=== PATIENT | female | born 1935 | race Caucasian/White ===

== ENCOUNTER 2017-08-28 21:13 | Inpatient (IN) | payer MEDICARE, OTHER ==
[~2017-08-28] VITALS: Ht 162.6 cm; Wt 72.6 kg
[~2017-08-28 21:13] MED LIST: ALEN70TA45 PO; AMIO200T2 PO; ASPI-1169 PO; BUPR100T13 PO; FURO20TA4 PO; LEVO75TA7 PO; METO25TA3 PO; PANT40TA4 PO; SENN-18 PO; SIMV20TA6 PO
--- NOTE | 2017-08-28 21:25 | NUR ---
PT BIB FAMILY SEEN IN WAITING ROOM WITH CHEST PAIN 8/10 RADIATING TO LEFT SHOULDER. PT LABORED BREATHING BUT ABLE TO SEPAK A/O X4. PLACED ON 02 IN BED. WILL CONTINUE TO MONITOR FOR CHANGES
[2017-08-28] MEDS ORDERED: DILTIAZEM HCL 25 MG IV IV ONE ×3 (21:30→22:30)
[2017-08-28] MEDS ORDERED: ASPIRIN 325 MG TABLET PO ONE (21:30)
--- NOTE | 2017-08-28 21:30 | NUR ---
EKG DONE AT BEDSIDE
[2017-08-28] MEDS ORDERED: DILTIAZEM HCL 50 MG IV ONE (21:37)
[2017-08-28] MEDS ORDERED: ASPIRIN 325 MG TABLET ONE (21:37)
--- NOTE | 2017-08-28 21:41 | NUR ---
CHETS XRAY AT BEDSIDE
[2017-08-28 21:42] LABS: BASOPHILS # (AUTO) 0.1 /CMM (0.0-0.2); BASOPHILS % (AUTO) 0.5 % (0.0-2.0); EOSINOPHILS # (AUTO) 0.2 /CMM (0.0-0.7); HEMATOCRIT 38 % (33-45); HEMOGLOBIN 13.1 g/dL (11.5-14.8); LYMPHOCYTES # (AUTO) 4.3 /CMM (0.8-4.8); LYMPHOCYTES % (AUTO) 42.6 % (20.0-44.0); MEAN CORPUSCULAR HEMOGLOBIN 30 PG (26.0-33.0); MEAN CORPUSCULAR HGB CONC 34 g/dl (31.0-36.0); MEAN CORPUSCULAR VOLUME 89 fL (82-100); MONOCYTES # (AUTO) 0.9 /CMM (0.1-1.30); MONOCYTES % (AUTO) 9.2 % (2.0-12.0); NEUTROPHILS # (AUTO) 4.6 /CMM (1.8-8.9); NEUTROPHILS % (AUTO) 45.7 % (43.0-81.0); PLATELET COUNT (AUTO) 225 /CMM (150-450); RDW COEFFICIENT OF VARIATION 13.5 (11.5-15.0); RED BLOOD CELL COUNT(AUTO) 4.29 MIL/uL (4.0-5.2)
[2017-08-28 22:02] LABS: INR 0.94 (0.87-1.13); PROTHROMBIN TIME 9.8 SECS (9.5-12.7)
[2017-08-28] MEDS ORDERED: DILTIAZEM HCL 25 MG IV ONE (22:31)
[2017-08-28 22:33] LABS: CALCIUM, SERUM 9.2 mg/dL (8.5-10.1); CARBON DIOXIDE 25 mmol/L (21-32); CHLORIDE 106 mmol/L (98-107); CREATININE 1.2 mg/dL (0.6-1.3); GLUCOSE 129 mg/dL (74-106); POTASSIUM 3.4 mmol/L (3.5-5.1); SODIUM SERUM 141 mmol/L (136-145); UREA NITROGEN, BLOOD 25 mg/dL (7-18)
[2017-08-28 22:41] LABS: TROPONIN I < 0.017 ng/mL (0.00-0.056)
[2017-08-28] MEDS ORDERED: AMIODARONE 150 MG in IV D5W 100 ML IV ONE (23:00)
[2017-08-28] MEDS ORDERED: AMIODARONE 900 MG in IV D5W 500 ML IV ONE (23:00)
[2017-08-28] MEDS ORDERED: AMIODARONE 150 MG/3 ML VIAL IV ONE ×2 (23:01→23:21)
--- NOTE | 2017-08-28 23:14 | NUR ---
[facility] PAGED
--- NOTE | 2017-08-29 00:09 | NUR ---
REPORT GIVEN TO CADE BERGMAN
[2017-08-29 00:20] VITALS: BP 130/94
--- NOTE | 2017-08-29 00:52 | NUR ---
0010 received patient from ER via gurney; accompanied by grand daughter. Patient currently on amiodarone drip at 1mg/hr; IV site RAC patent and intact. Alert and verbally responsive, ambulated to bed-2 after using the bathroom. Oriented to physical set up. Skin check done with Joey. Routine admission care done. Sheryl Masters NP; clinical practitioner for [facility] notified earlier of patient's admission and made aware of k level 3.4 and BUN 25. Call light within reach. Kept comfortable. Denies pain at this time, no chest pain. Still with uncontrolled a fib on monitor. 0100 Notified Sheryl of unproductive cough, patient requesting for robitussin. Also informed her that patient is on day 2 of Z pack for ear infection Report given to Suzanne Sim RN
[2017-08-29] MEDS ORDERED: Z GUARD REMEDY 2 OZ OINT TP PRN (01:30)
[2017-08-29] MEDS ORDERED: HYDROCODONE/APAP 5/325MG 1 EACH TABLET PO PRN (01:30)
[2017-08-29] MEDS ORDERED: ONDANSETRON HCL/PF 4 MG/2 ML VIAL IVP PRN (01:30)
[2017-08-29] MEDS ORDERED: POTASSIUM CHLORIDE 20 MEQ TAB.PRT.SR PO ONE ×2 (01:30→01:56)
[2017-08-29] MEDS ORDERED: APIXABAN 5 MG TABLET PO SCH (02:00)
[2017-08-29] MEDS ORDERED: GUAIFENESIN/D-METHORPHAN HB 5 ML UDC PO PRN (02:00)
[2017-08-29] MEDS ORDERED: GUAIFENESIN/D-METHORPHAN HB 5 ML UDC ONE (02:10)
[2017-08-29] MEDS ORDERED: GUAIFENESIN/CODEINE 10 ML UDC ONE (02:13)
[2017-08-29] MEDS: GUAIFENESIN/CODEINE 10 ML UDC PO PRN ×2 (02:14→11:26)
--- NOTE | 2017-08-29 02:15 | NUR ---
RN NOTES PER PATIENT SHE TOOK ELIQUIS AT HOME PRIOR TO COMING. REQUESTED PATIENT TO ASK FAMILY MEMBER TO BRING ELIQUIS TABS TO THE FACILITY SINCE OUR PHARMACY DOES NOT HAVE THE MEDICINE HERE.
[2017-08-29] MEDS: AZITHROMYCIN 250 MG TABLET PO SCH (03:23)
[2017-08-29] MEDS ORDERED: APIX5TAB PO (03:38)
[2017-08-29] MEDS ORDERED: LISI-607 PO (03:38)
[2017-08-29] MEDS ORDERED: POTA-10 PO (03:38)
[2017-08-29 04:00] VITALS: BP 115/73
--- NOTE | 2017-08-29 05:45 | NUR ---
RN NOTES TITRATE AMIODARONE DRIP TO 0.5 MG.
--- NOTE | 2017-08-29 06:46 | NUR ---
RN NOTES PT AWAKE ON BED PT FEELS ENERGETIC AND DOESN'T WANT TO SLEEP AT THIS TIME. EDUCATE PT REGARDING HER DIAGNOSIS VERBALIZED UNDERSTANDING. IV SITE INTACT WITH ONGOING AMIODARONE DRIP @ 0.5 MG/HR. DENIES CHEST PAIN. NO SIGNIFICANT CHANGE OF CONDITION AT THIS TIME. LAST TELE MONITOR REVEALS A-FIB HR 63. PT REMAINED CALM AND COMPLIANT. ALL NEEDS ATTENDED. WILL ENDORSED CONTINUITY OF CARE TO AM NURSE.
--- NOTE | 2017-08-29 07:28 | NUR ---
PACHECO RN NOTE PATIENT IN BED , ALL NEEDS ATTENDED NOT IN ACUTE DISTRESS , ON TELE MONITOR SR 68 AT THIS TIME , NO C]O CHEST PAIN OR DIZZINESS,ON AMIODARONE DRIP ORDERED , RT AC HL INTACT BED IN LOWEST AND LOCKED POSITION , CALL LIGHT WITHIN REACH , PLAN OF CARE DISCUSSED WITH PATIENT, WILL CONT TO MONITOR CLOSELY
[2017-08-29] MEDS: ACETAMINOPHEN 325 MG TABLET PO PRN ×2 (07:44→19:41)
[2017-08-29 08:00] VITALS: BP_SYST 119; BP_SYST 143; BP_DIAS 55; BP_DIAS 89
[2017-08-29 08:31] LABS: BASOPHILS % (AUTO) 0.5 % (0.0-2.0); EOSINOPHILS # (AUTO) 0.2 /CMM (0.0-0.7); EOSINOPHILS % (AUTO) 1.8 % (0.0-6.0); HEMATOCRIT 36 % (33-45); HEMOGLOBIN 12.5 g/dL (11.5-14.8); LYMPHOCYTES # (AUTO) 3.5 /CMM (0.8-4.8); LYMPHOCYTES % (AUTO) 37.6 % (20.0-44.0); MEAN CORPUSCULAR HEMOGLOBIN 31 PG (26.0-33.0); MEAN CORPUSCULAR HGB CONC 35 g/dl (31.0-36.0); MEAN CORPUSCULAR VOLUME 88 fL (82-100); MONOCYTES # (AUTO) 0.7 /CMM (0.1-1.30); NEUTROPHILS # (AUTO) 4.9 /CMM (1.8-8.9); NEUTROPHILS % (AUTO) 52.1 % (43.0-81.0); PLATELET COUNT (AUTO) 210 /CMM (150-450); RDW COEFFICIENT OF VARIATION 13.6 (11.5-15.0); RED BLOOD CELL COUNT(AUTO) 4.09 MIL/uL (4.0-5.2); WHITE BLOOD COUNT (AUTO) 9.4 K/uL (4.3-11.0)
[2017-08-29] MEDS: APIXABAN 5 MG TABLET PO SCH ×2 (08:36→16:04)
[2017-08-29 08:40] LABS: CALCIUM, SERUM 8.9 mg/dL (8.5-10.1); CARBON DIOXIDE 25 mmol/L (21-32); CHLORIDE 108 mmol/L (98-107); CREATININE 0.9 mg/dL (0.6-1.3); GLUCOSE 111 mg/dL (74-106); MAGNESIUM 1.9 mg/dL (1.8-2.4); PHOSPHORUS 4.1 mg/dL (2.5-4.9); POTASSIUM 4.8 mmol/L (3.5-5.1); SODIUM SERUM 142 mmol/L (136-145); UREA NITROGEN, BLOOD 20 mg/dL (7-18)
[2017-08-29 09:14] LABS: CHOLESTEROL 123 mg/dL (<200); HDL CHOLESTEROL 59 mg/dL (40-60); LDL 53 mg/dL (0-99); TRIGLYCERIDES 120 mg/dL (30-150)
--- NOTE | 2017-08-29 10:04 | NUR ---
PACHECO RN NOTE PER HOSPITAL POLICY AMIODARONE DRIP NEED CONT FOR 24 HOUR , RUNNING DRIP AT 0.5 MG \ML,PHARMACY AWARE, WILL CONT TO MONITOR CLOSELY
[2017-08-29] MEDS ORDERED: PNEUMOCOCCAL 23-VAL P-SAC VAC 0.5 ML VIAL SQ ONE (11:30)
[2017-08-29] MEDS ORDERED: AMIODARONE 900 MG in IV D5W 482 ML IV PRN (11:30)
--- NOTE | 2017-08-29 11:52 | NUR ---
PACHECO RN NOTE C\O COUGH, ROBITUSSIN PO GIVEN ORDERED, WILL F\U
[2017-08-29 12:00] VITALS: BP 112/70
--- NOTE | 2017-08-29 12:46 | NUR ---
PACHECO RNN NOTE CALLED X3 TO PHARMACY ABOUT PNA VACCINE, STATED THAT WILL BRING SOON , SPOKE WITH JEFE
--- NOTE | 2017-08-29 13:00 | NUR ---
PACHECO RN NOTE SPOKE WITH HUNG SALINAS RN PATHOLOGY LABORATORY DIRECTOR NOTIFIED THAT PATIENT STILL ON AMIODARONE DRIP WILL BE DONE ON 2344 ,STATED CONT TILL DR MAGANA SEE PATIENT, WILL F\U Addendum: 08/29/17 at 1540 by VITO MCGEE RN 1300 SPOKE WITH HANY SUE PATHOLOGY LABORATORY DIRECTOR NOTIFIED THAT ON TELE MONITOR SR HR 65 NO AFIB NOTED AT THIS TIME ,STATED WAIT TILL DR MAGANA WILL SEE LEXY UNTIL FURTHER ORDERS
--- NOTE | 2017-08-29 14:12 | NUR ---
PACHECO RN NOTE ABDOMINAL DISCOMFORT , ZOFRAN IVP GIVEN, WILL CONT TO MONITOR CLOSELY
[2017-08-29 16:00] VITALS: BP 118/68
--- NOTE | 2017-08-29 16:57 | NUR ---
PACHECO RN NOTE DR MAGANA PLASMA SPECIALIST SEEN PATIENT , AWARE THAT PATIENT STILL ON AMIODARONE KALA STATED COMPLETE PROTOCOL THEN FIRST DOSE AMIODARONE PO AFTER [facility] F\U
[2017-08-29] MEDS ORDERED: AMIODARONE HCL 200 MG TABLET PO SCH (17:00)
--- NOTE | 2017-08-29 18:27 | NUR ---
PACHECO RN NOTE HAVING DINNER , ABLE TO EATS SELF NO C\O PAIN OR DISCOMFORT. WILL CONT TO MONITOR CLOSELY
[2017-08-29 20:00] VITALS: BP_SYST 103; BP_SYST 111; BP_DIAS 46; BP_DIAS 69
--- NOTE | 2017-08-29 20:00 | NUR ---
MANAGER CASE NOTES RECEIVED PTS ON BED A/O X4 AMBULATORY , ON TELE SR ON THE MONITOR, ON 02 AT 2LITERS VIA NC , NO SOB NO DISTRESS NOTED , SATING 95%, NO C/O OF PAIN AT THIS TIME, ALL NEEDS ATTENDED TOO CALL LIGHT WITHIN REACH ALL DUE MEDS GIVEN ORDERED, ON AMIODARONE IN PROGRESS O.5 MG IN PROGRESS TO BE COMPLETED AT 9PM WITH RAC g#20 AND L HAND g24 INTACT AND PATENT .V/S STABLE AND AFEBRILE, WILL CONTINUE TO MONITOR PTS.
--- NOTE | 2017-08-29 21:00 | NUR ---
PACHECO RN NOTES AMIODARONE DRIP COMPLETED AT 2100HRS V/S STABLE AFEBRILE ON SR AT 80 ON THE MONITOR.
[2017-08-29] MEDS: AMIODARONE HCL 200 MG TABLET PO SCH (22:21)
[2017-08-30] VITALS: BP_SYST 133; BP_SYST 136; BP_DIAS 60; BP_DIAS 67
[2017-08-30 04:00] VITALS: BP 139/63
[2017-08-30] MEDS: AZITHROMYCIN 250 MG TABLET PO SCH (04:28)
--- NOTE | 2017-08-30 06:22 | NUR ---
MS RN NOTES SEEN AND EXAMINED BY DR MAGANA WITH ORDER D/C PACHECO STATUS CHANGED TO MS STATUS. PTS IS STABLE AT THIS TIME NO SOB NO DISTRESS NOTED , V/S STABLE AFEBRILE . WILL ENDORSED TO RN DAY SHIFT FOR CONTINUITY OF CARE.
[2017-08-30 08:00] VITALS: BP 129/81
[2017-08-30] MEDS: GUAIFENESIN/CODEINE 10 ML UDC PO PRN (08:36)
[2017-08-30] MEDS: AMIODARONE HCL 200 MG TABLET PO SCH ×2 (08:59→12:23)
[2017-08-30] MEDS: APIXABAN 5 MG TABLET PO SCH (08:59)
[2017-08-30 09:19] LABS: CALCIUM, SERUM 9.3 mg/dL (8.5-10.1); CARBON DIOXIDE 27 mmol/L (21-32); CHLORIDE 107 mmol/L (98-107); CREATININE 1.1 mg/dL (0.6-1.3); GLUCOSE 153 mg/dL (74-106); POTASSIUM 4.7 mmol/L (3.5-5.1); SODIUM SERUM 141 mmol/L (136-145); UREA NITROGEN, BLOOD 18 mg/dL (7-18)
[2017-08-30] MEDS: ACETAMINOPHEN 325 MG TABLET PO PRN (12:22)
[2017-08-30 12:23] VITALS: BP 112/62
[2017-08-30] MEDS ORDERED: AMIO200T2 PO (14:15)
--- NOTE | 2017-08-30 16:32 | NUR ---
RADIO BOARD OPERATOR ANNOUNCER NOTE. DISCHARGE ORDERS RECEIVED.EXIT CARE INSTRUCTIONS AND PRESCRIPTIONS PROVIDED, H/L AND ID BAND REMOVED.BELONGINGS RETURNED.SKIN CLEAR ON DISCHARGE. PT IS AMBULATORY, VSS, NO DISTRESS NOTED NO C/O CHEST PAIN, HAPPY TO BE D/C HOME. PT GRANDDAUGHTER BRENDA PICKED UP PATIENT TO GO HOME VIA PRIVATE CAR .
== END 2017-08-30 16:40 | disposition home or self-care (01) | DRG 308 ==
LOC: ER 21:15 → TELE-TD 23:51 → MEDSG1 08-30 06:15
PROVIDERS: ADMIT Nurse Practitioner Acute Care; ATTEND Nurse Practitioner Acute Care
DX: I48.91 Unspecified atrial fibrillation (principal); N17.0 Acute kidney failure with tubular necrosis; I50.32 Chronic diastolic (congestive) heart failure; D68.59 Other primary thrombophilia; I11.0 Hypertensive heart disease with heart failure; I25.10 Atherosclerotic heart disease of native coronary artery without angina pectoris; E78.5 Hyperlipidemia, unspecified; M19.90 Unspecified osteoarthritis, unspecified site; Z90.710 Acquired absence of both cervix and uterus; Z87.891 Personal history of nicotine dependence; Z79.899 Other long term (current) drug therapy; Z79.82 Long term (current) use of aspirin; Z79.01 Long term (current) use of anticoagulants; E87.6 Hypokalemia; F41.9 Anxiety disorder, unspecified; Z88.0 Allergy status to penicillin
CPT/HCPCS: 36415; 71010-TC; 80048-TC; 80061-TC; 83735-TC; 84100-TC; 84484-TC; 85025-TC; 85730-TC; 87081-TC; 90732; A4606; A6402; J0282; J2405; J3490; J7060; Z7610

== ENCOUNTER 2017-12-10 16:01 | Emergency (ER) | payer MEDICARE ==
[~2017-12-10] VITALS: Ht 167.6 cm; Wt 74.8 kg
[~2017-12-10 16:01] MED LIST changes: -ALEN70TA45 PO; -AMIO200T2 PO; +AMIO200T4 PO; +APIX5TAB PO; -ASPI-1169 PO; -BUPR100T13 PO; +LISI-607 PO; -METO25TA3 PO; +POTA-10 PO; -SENN-18 PO
--- NOTE | 2017-12-10 16:01 | NUR ---
C/O ON/OFF CHEST PAIN SINCE YESTERDAY W/ LEFT ARM NUMBNESS. NAD NOTED. PT AAO X4, AMB WITH STEADY GAIT. RR EVEN AND UNLABORED. PENDING MD DONIS.
[2017-12-10] MEDS ORDERED: ASPIRIN 81 MG TAB.CHEW ONE (16:25)
[2017-12-10 16:40] LABS: MONOCYTES # (AUTO) 0.7 /CMM (0.1-1.30); NEUTROPHILS # (AUTO) 4.5 /CMM (1.8-8.9); WHITE BLOOD COUNT (AUTO) 8.5 K/uL (4.3-11.0)
[2017-12-10] MEDS: ASPIRIN 81 MG TAB.CHEW PO ONE (16:41)
[2017-12-10 16:44] LABS: CALCIUM, SERUM 9.4 mg/dL (8.5-10.1); CARBON DIOXIDE 26 mmol/L (21-32); CHLORIDE 106 mmol/L (98-107); CREATININE 1.1 mg/dL (0.6-1.3); POTASSIUM 4.2 mmol/L (3.5-5.1); SODIUM SERUM 141 mmol/L (136-145); UREA NITROGEN, BLOOD 27 mg/dL (7-18)
[2017-12-10 16:46] LABS: BASOPHILS # (AUTO) 0.2 /CMM (0.0-0.2); HEMATOCRIT 36 % (33-45); HEMOGLOBIN 12.9 g/dL (11.5-14.8); LYMPHOCYTES % (AUTO) 35.4 % (20.0-44.0); MEAN CORPUSCULAR HGB CONC 36 g/dl (31.0-36.0); MEAN CORPUSCULAR VOLUME 89 fL (82-100); MONOCYTES % (AUTO) 8.2 % (2.0-12.0); NEUTROPHILS % (AUTO) 53.4 % (43.0-81.0); PLATELET COUNT (AUTO) 203 /CMM (150-450); RDW COEFFICIENT OF VARIATION 12.5 (11.5-15.0); RED BLOOD CELL COUNT(AUTO) 4.03 MIL/uL (4.0-5.2)
[2017-12-10 16:53] LABS: TROPONIN I < 0.017 ng/mL (0.00-0.056)
[2017-12-10 16:57] LABS: GLUCOSE 101 mg/dL (74-106)
[2017-12-10 17:00] LABS: INR 0.97 (0.85-1.15)
--- NOTE | 2017-12-10 17:24 | NUR ---
PAGED DR RUBI GROUND DEFENCE OFFICER,
--- NOTE | 2017-12-10 18:11 | NUR ---
REPAGED DR RUBI AUTOMOBILE LEASING SUPERVISOR,
[2017-12-10 19:17] VITALS: BP 148/68
--- NOTE | 2017-12-10 19:17 | NUR ---
IV removed. Catheter intact and site benign. Pressure and 4x4 applied to site. No bleeding noted.Patient discharged to home in stable condition. Written and verbal after care instructions given. Patient verbalizes understanding of instruction.
== END 2017-12-10 19:18 | disposition home or self-care (01) ==
LOC: ER 16:02
DX: R07.2 Precordial pain (principal); E07.9 Disorder of thyroid, unspecified; E78.00 Pure hypercholesterolemia, unspecified; F41.9 Anxiety disorder, unspecified; I11.0 Hypertensive heart disease with heart failure; I25.10 Atherosclerotic heart disease of native coronary artery without angina pectoris; I48.91 Unspecified atrial fibrillation; I50.9 Heart failure, unspecified; M54.40 Lumbago with sciatica, unspecified side; I70.0 Atherosclerosis of aorta; Z79.01 Long term (current) use of anticoagulants; Z79.82 Long term (current) use of aspirin; Z88.0 Allergy status to penicillin; Z90.710 Acquired absence of both cervix and uterus
CPT/HCPCS: 36415; 71045-TC; 80048-TC; 84484-TC; 85025-TC; 85730-TC; A4606; Z7610

== ENCOUNTER 2021-05-11 08:18 | Inpatient (IN) | payer MEDICARE ==
[~2021-05-11] VITALS: Ht 165.1 cm; Wt 73.5 kg
[~2021-05-11 08:18] MED LIST changes: -AMIO200T4 PO; +AMIO200T5 PO; -LISI-607 PO; +LISI-768 PO; -PANT40TA4 PO; +PANT40TA49 PO; +SIMV-46 PO; -SIMV20TA6 PO
--- NOTE | 2021-05-11 08:40 | NUR ---
PATIENT BIBPA FROM [facility] Was tested for COVID yesterday-Negative. Patient awake, alert and oriented x4. Respirations even, on room air at 98%. Will continue to monitor. Addendum: 05/11/21 at 1230 by [email or web address] PATIENT FROM HOME [facility] [place] [facility] AND STATES SHE WAS TESTED FR COVID YESTERDAY AND WAS NEGATIVE. PATIENT STATES HER HOUSEHOLD IS PRESENTING COVID SYMPTOMS. NO RESPIRATORY DISTRESS NOTED. WILL CONTINUE TO MONITOR.
--- NOTE | 2021-05-11 08:50 | NUR ---
radiology at bedside
[2021-05-11 09:05] LABS: BASOPHILS % (AUTO) 0.3 % (0.0-2.0); EOSINOPHILS % (AUTO) 0.1 % (0.0-6.0); HEMATOCRIT 39 % (33-45); HEMOGLOBIN 13.4 g/dL (11.5-14.8); LYMPHOCYTES # (AUTO) 1.2 K/uL (0.8-4.8); LYMPHOCYTES % (AUTO) 21.2 % (20.0-44.0); MEAN CORPUSCULAR HGB CONC 34 g/dl (31.0-36.0); MEAN CORPUSCULAR VOLUME 90 fL (82-100); MONOCYTES # (AUTO) 0.6 K/uL (0.1-1.30); MONOCYTES % (AUTO) 10.3 % (2.0-12.0); NEUTROPHILS % (AUTO) 68.1 % (43.0-81.0); PLATELET COUNT (AUTO) 159 K/uL (150-450); RED BLOOD CELL COUNT(AUTO) 4.36 MIL/uL (4.0-5.2); WHITE BLOOD COUNT (AUTO) 5.9 K/uL (4.3-11.0)
[2021-05-11 09:16] LABS: CALCIUM, SERUM 8.8 mg/dL (8.5-10.1); CARBON DIOXIDE 23 mmol/L (21-32); CHLORIDE 105 mmol/L (98-107); CREATININE 0.9 mg/dL (0.6-1.3); GLUCOSE 117 mg/dL (74-106); POTASSIUM 4.4 mmol/L (3.5-5.1); SODIUM SERUM 139 mmol/L (136-145); UREA NITROGEN, BLOOD 16 mg/dL (7-18)
--- NOTE | 2021-05-11 09:17 | NUR ---
covid swab sent to lab
[2021-05-11 09:26] LABS: ALANINE AMINOTRANSFERASE 28 U/L (12-78); ALBUMIN 3.3 g/dL (3.4-5.0); ALKALINE PHOSPHATASE 86 U/L (46-116); ASPARTATE AMINOTRANSFERASE 43 U/L (15-37); BILIRUBIN,DIRECT 0.1 mg/dL (0.0-0.2); BILIRUBIN,TOTAL 0.5 mg/dL (0.2-1.0); TOTAL PROTEIN, SERUM 7.5 g/dL (6.4-8.2)
--- NOTE | 2021-05-11 09:37 | NUR ---
Patient assisted to bathroom for the second time for urine sample, patient unable to urinate at the moment. made aware
--- NOTE | 2021-05-11 10:38 | NUR ---
Patient in bed resting. no respiratory distress noted. respirations even and unlabored. will continue to monitor.
[2021-05-11] MEDS ORDERED: METO25TA6 PO (10:43)
[2021-05-11] MEDS ORDERED: LOSA50TA3 PO (10:43)
[2021-05-11] MEDS ORDERED: AMIO100T4 PO (10:43)
[2021-05-11] MEDS ORDERED: MAGN100T3 PO (10:43)
--- NOTE | 2021-05-11 11:26 | NUR ---
Patient continue to be resting in bed, no signs of distress noted. Respirations even and unlabored. patient able to make needs known verbally. Continue to monitor.
--- NOTE | 2021-05-11 12:27 | NUR ---
URINE COLLECTED AND SENT TO LAB
[2021-05-11 12:33] LABS: BILIRUBIN,URINE Negative (NEGATIVE); COLOR,URINE YELLOW (YELLOW); LEUKOCYTE ESTERASE ,URINE Small (NEGATIVE); NITRITE, URINE Positive (NEGATIVE); PH,URINE 5.5 (5.0-8.0); PROTEIN,URINE Negative (NEGATIVE); UGLUCOSE Negative (NEGATIVE); UROBILINOGEN,URINE 0.2 EU/dL (0.2)
[2021-05-11 12:35] LABS: BACTERIA,URINE Few /HPF (None Seen); RBC,URINE 0-2 /HPF (0-2); SQUAMOUS EPITHELIAL CELL,UR Few /HPF (None Seen)
--- NOTE | 2021-05-11 13:08 | NUR ---
PATIENT C/O GENERALIZED PAIN, INFORMED BENJI PERRY AND RECIEVED ORDER TO GIVE NORCO 5/325 1 TAB PO Q6HRS PRN ORDERED.
[2021-05-11] MEDS ORDERED: HYDROCODONE/APAP 5/325MG TABLET ONE (13:11)
[2021-05-11] MEDS: HYDROCODONE/APAP 5/325MG TABLET PO PRN ×2 (13:14→18:45)
--- NOTE | 2021-05-11 14:25 | NUR ---
ROOM 112-1
--- NOTE | 2021-05-11 15:45 | NUR ---
REPORT GIVEN TO FREDI FOR JOYCE
--- NOTE | 2021-05-11 15:50 | NUR ---
PATIENT TRANSFERRED TO ROOM 112 VIA ACLS PROTOCOL. IN NO DISTRESS NOTED.
[2021-05-11 16:00] VITALS: BP 142/83
--- NOTE | 2021-05-11 18:40 | NUR ---
RN NOTES; PT HAS EPISODES OF VOMITING. MD PERRY, AWARE. ZOFRAN 4MG GIVEN. WILL CONTINUE TO MONITOR.
[2021-05-11] MEDS: ONDANSETRON HCL/PF 4 MG/2 ML VIAL IV PRN (18:52)
--- NOTE | 2021-05-11 19:00 | NUR ---
RN CLOSING NOTES; PT A/OX3. PT IS COVID +, ON DROPLET PRECAUTION. PT C/O NAUSEA AND HAD EPISODES OF VOMITING. MD PERRY NOTIFIED. ZOFRAN AND NORCO GIVEN, AND WELL TOLERATED. AWAITING FOR FURTHER ORDERS. ENDORSE TO PATTERN CHANGER RN.
[2021-05-11] MEDS ORDERED: ONDANSETRON HCL/PF 4 MG/2 ML VIAL IVP PRN (19:30)
[2021-05-11] MEDS ORDERED: IV NS 0.9% 1,000 ML IV SCH (19:30)
[2021-05-11] MEDS ORDERED: Z GUARD REMEDY 2 OZ OINT TP PRN (19:30)
[2021-05-11 20:00] VITALS: BP 125/59
--- NOTE | 2021-05-11 20:00 | NUR ---
SERVICE MEMBER NOTES RECEIVED PTS IN BED AWAKE ALERT X 4 AMBULATORY . ON TELE SR 86 ON THE MONITOR NO SOB NO DISTRESS NOTED NAUSEA RESOLVED , ALL NEEDS ATTENDED ALL DUE MEDS GIVEN ORDERED. NO ASE NOTED .WITH RIGHT AC G#20 INTACT AND PATENT IVF OF NS AT 75CC/HR INFUSING WELL , PTS ON CARDIAC DIET CHICKEN SANDWICH OFFER TO HER .PTS ON CONTACT DROPLET PRECAUTION , ALL PRECAUTIONARY MEASURES OBSERVE ALL THE TIME. BED ON LOWSIDE AND LOCKED PTS ON FERNANDA FOWLERS POSITION ,FULL CODE STATUS..V/S STABLE AFEBRILE.WILL CONTINUE TO MONITOR PTS
[2021-05-11] MEDS: MORPHINE SULFATE INJ 2 MG/ML DISP.SYRIN IV PRN (22:10)
[2021-05-12] VITALS: BP 147/75
[2021-05-12] MEDS: ONDANSETRON HCL/PF 4 MG/2 ML VIAL IV PRN (04:55)
[2021-05-12 06:00] VITALS: BP 163/76
[2021-05-12 07:02] LABS: BASOPHILS % (AUTO) 0.1 % (0.0-2.0); HEMATOCRIT 35 % (33-45); HEMOGLOBIN 12.2 g/dL (11.5-14.8); LYMPHOCYTES # (AUTO) 0.5 K/uL (0.8-4.8); LYMPHOCYTES % (AUTO) 20.2 % (20.0-44.0); MEAN CORPUSCULAR HGB CONC 35 g/dl (31.0-36.0); MEAN CORPUSCULAR VOLUME 90 fL (82-100); MONOCYTES # (AUTO) 0.2 K/uL (0.1-1.30); MONOCYTES % (AUTO) 7.5 % (2.0-12.0); NEUTROPHILS # (AUTO) 1.8 K/uL (1.8-8.9); NEUTROPHILS % (AUTO) 72.2 % (43.0-81.0); PLATELET COUNT (AUTO) 114 K/uL (150-450); RED BLOOD CELL COUNT(AUTO) 3.88 MIL/uL (4.0-5.2); WHITE BLOOD COUNT (AUTO) 2.6 K/uL (4.3-11.0)
[2021-05-12] MEDS: ACETAMINOPHEN 325 MG TABLET PO PRN (07:05)
[2021-05-12] MEDS: APIXABAN 5 MG TABLET PO SCH ×2 (07:06→16:28)
--- NOTE | 2021-05-12 07:36 | NUR ---
NOTCHED BLADE LOADER NOTES ENDORSE PTS TO VITO RN DAY SHIFT FOR CONTINUITY FOR CONTINUITY OF CARE
[2021-05-12 07:43] LABS: ALBUMIN 2.9 g/dL (3.4-5.0); BILIRUBIN,TOTAL 0.8 mg/dL (0.2-1.0); CALCIUM, SERUM 7.9 mg/dL (8.5-10.1); CREATININE 0.8 mg/dL (0.6-1.3); PHOSPHORUS 3.2 mg/dL (2.5-4.9); POTASSIUM 3.8 mmol/L (3.5-5.1); TOTAL PROTEIN, SERUM 6.6 g/dL (6.4-8.2)
[2021-05-12 08:00] VITALS: BP 147/65
--- NOTE | 2021-05-12 08:00 | NUR ---
OIL PLANT OPERATOR NOTE PATIENT IN BED , ALERT ORIENTED X2 ,ON 3L NC SATURATION 95% AT THIS TIME, ABLE TO EAT BREAKFAST ATE 50% OF FOOD ,ON TELE MONITOR SR HR92 RT AC HL INTACT AND FLUSHED WELL , BED IN LOWEST AND LOCKED POSITION , WILL CONT TO MONITOR
[2021-05-12 08:03] LABS: THYROID STIMULATING HORMONE 0.634 uIU/mL (0.358-3.74)
[2021-05-12] MEDS: LEVOTHYROXINE SODIUM 75 MCG TABLET PO SCH (08:40)
[2021-05-12] MEDS: PANTOPRAZOLE 40 MG TABLET.DR PO SCH (08:40)
[2021-05-12] MEDS: METOPROLOL TARTRATE 25 MG TABLET PO SCH ×2 (08:41→16:27)
[2021-05-12] MEDS: LOSARTAN POTASSIUM 50 MG TABLET PO SCH (08:41)
[2021-05-12] MEDS ORDERED: SIMVASTATIN 20 MG TABLET PO SCH (09:00)
[2021-05-12] MEDS ORDERED: AMIODARONE HCL 200 MG TABLET PO SCH (09:00)
--- NOTE | 2021-05-12 10:00 | NUR ---
telephone collector note assisted to br , able to urinate well
[2021-05-12 12:00] VITALS: BP 147/65
--- NOTE | 2021-05-12 12:32 | NUR ---
SBA UNDERWRITER NOTE DR BENJI DU DNP AT BEDSIDE AWARE LIVER FUNCTION RESULT , ORDERED TO CMP STAT WILL F\U
[2021-05-12] MEDS: DEXAMETHASONE SOD PHOSPHATE 10 MG/ML VIAL IV SCH (14:24)
[2021-05-12 16:00] VITALS: BP 138/42
--- NOTE | 2021-05-12 16:00 | NUR ---
DATA QUALITY CONSULTANT NOTE CMP RESULT REPORTED TO DR BENJI DU
[2021-05-12 16:01] LABS: CALCIUM, SERUM 8.9 mg/dL (8.5-10.1); CREATININE 0.9 mg/dL (0.6-1.3); POTASSIUM 4.2 mmol/L (3.5-5.1)
[2021-05-12 16:07] LABS: ALBUMIN 3.3 g/dL (3.4-5.0); BILIRUBIN,TOTAL 0.4 mg/dL (0.2-1.0); TOTAL PROTEIN, SERUM 7.1 g/dL (6.4-8.2)
[2021-05-12] MEDS: HYDROCODONE/APAP 5/325MG TABLET PO PRN ×2 (16:54→23:33)
--- NOTE | 2021-05-12 16:58 | NUR ---
PIANO SOUNDING BOARD MATCHER NOTE C\O PAIN ON BODY 8\10 NORCO PO GIVEN, SATURATION 98%
[2021-05-12] MEDS ORDERED: FUROSEMIDE 20 MG TABLET PO SCH (18:00)
--- NOTE | 2021-05-12 18:31 | NUR ---
television schedule coordinator note patient in bed , all needs attended call light within reach , no sob noted no c\o pain or discomfort , will cont to monitor closely
--- NOTE | 2021-05-12 19:50 | NUR ---
called dr swanson office, left message for follow up on ivf. Addendum: 05/12/21 at 2219 by CASS CHILD RN DISREGARD, WRONG PT
[2021-05-12 20:00] VITALS: BP 146/53
--- NOTE | 2021-05-12 22:23 | NUR ---
RN OPENING NOTE REC'D PT IN BED. AWAKE ALERT X 4, PT IS ON 3L ON NC, TOLERATING WELL. NO SOB NOTED, BREATHING EVEN AND UNLABORED. PT IS ON MED SURG MONITORING. ALL NEEDS ATTENDED AT THIS TIME. PT IV SITE RAC #20 INTACT. PT IS AMBULATORY WITH STEADY GAIT. EDUCATED PT ON USE OF NC, TO REMAIN ON IN BED. PT DENIES PAIN. ISOLATION PRECAUTIONS, CONTACT IN PLACE. SAFETY MEASURES IN PLACE. HOB ELEVATED TOLERATED. SIDE RAILS UP X2, BED LOCKED IN LOWEST POSITION. CALL LIGHT WITHIN REACH. WILL CONT TO MONITOR THROUGHOUT SHIFT.
--- NOTE | 2021-05-13 00:39 | NUR ---
PT REC'D DIANE @4093 FOR GENERALIZED PAIN 03/11, REQUESTED MEDICATION, DIANE GIVEN PRN ORDERED. PT AT THIS TIME RESTING, VERBALIZED MEDICATION EFFECTIVE
--- NOTE | 2021-05-13 02:44 | NUR ---
REFRACTORY SPECIALIST NOTE PT AT THIS TIME RESTING WELL, NO DISTRESS NOTED. VSS. WILL CONT TO MONITOR CLOSELY, MAKING ROUNDS
[2021-05-13 04:00] VITALS: BP 150/78
[2021-05-13] MEDS: APIXABAN 5 MG TABLET PO SCH ×2 (06:18→16:41)
--- NOTE | 2021-05-13 06:41 | NUR ---
RN CLOSING NOTE PATIENT REMAINS IN ROOM, RESTING IN NO SIGNS OF RESPIRATORY DISTRESS, PATIENT STILL ON 3L OF 02. BREATHING IS EVEN AND UNLABORED. PT DENIES SOB. PT DENIES PAIN. SAFETY MEASURES IMPLEMENTED, BED REMAINS LOCKED IN LOWEST POSITION WITH SIDE RAILS UP X2. CALL LIGHT WITHIN REACH. ALL NEEDS AND ORDERS ATTENDED THROUGHOUT SHIFT. IV ACCESS MAINTAINED INTACT AND SECURE. ALL DUE MEDS GIVEN ORDERED, PT TOLERATED WELL. PATIENT KEPT CLEAN AND COMFORTABLE. WILL ENDORSE TO ONCOMING RN FOR CONTINUITY OF CARE.
[2021-05-13 07:19] LABS: BASOPHILS % (AUTO) 0.1 % (0.0-2.0); HEMATOCRIT 38 % (33-45); HEMOGLOBIN 13.3 g/dL (11.5-14.8); LYMPHOCYTES # (AUTO) 0.8 K/uL (0.8-4.8); LYMPHOCYTES % (AUTO) 19.8 % (20.0-44.0); MEAN CORPUSCULAR HGB CONC 35 g/dl (31.0-36.0); MEAN CORPUSCULAR VOLUME 90 fL (82-100); MONOCYTES # (AUTO) 0.5 K/uL (0.1-1.30); MONOCYTES % (AUTO) 11.4 % (2.0-12.0); NEUTROPHILS # (AUTO) 2.8 K/uL (1.8-8.9); NEUTROPHILS % (AUTO) 68.7 % (43.0-81.0); PLATELET COUNT (AUTO) 133 K/uL (150-450); RED BLOOD CELL COUNT(AUTO) 4.24 MIL/uL (4.0-5.2); WHITE BLOOD COUNT (AUTO) 4.1 K/uL (4.3-11.0)
--- NOTE | 2021-05-13 07:30 | NUR ---
TELE NURSE OPENING NOTE RECEIVE PATIENT FROM PM NURSE. A/O X4. ON ROOM AIR. NO SOB. SKIN INTACT. PATIENT ABLE TO AMBULATE. PATIENT ON MONITOR WITH SINUS RHYTHM. NO DISCOMFORT. HEP LOCK ON RIGHT AC WITH 20G. SITE CLEAN. CARE DISCUSSED, PATIENT VERBALIZED UNDERSTANDING. ISOLATION PRECAUTION OBSERVED. SAFETY MEASURE IN PLACE, BED LOW/LOCKED, HOB UP 30 DEGREE, SR UP X3, CALL LIGHT WITHIN REACH, WILL CONTINUE TO MONITOR.
[2021-05-13 07:35] LABS: BILIRUBIN,DIRECT 0.2 mg/dL (0.0-0.2); BILIRUBIN,TOTAL 0.4 mg/dL (0.2-1.0); CALCIUM, SERUM 8.6 mg/dL (8.5-10.1); CREATININE 0.9 mg/dL (0.6-1.3); PHOSPHORUS 3.7 mg/dL (2.5-4.9); POTASSIUM 4.6 mmol/L (3.5-5.1); TOTAL PROTEIN, SERUM 7.1 g/dL (6.4-8.2)
[2021-05-13 08:00] VITALS: BP 132/72
[2021-05-13] MEDS: PANTOPRAZOLE 40 MG TABLET.DR PO SCH (08:04)
[2021-05-13] MEDS: ACETAMINOPHEN 325 MG TABLET PO PRN (08:04)
[2021-05-13] MEDS: LEVOTHYROXINE SODIUM 75 MCG TABLET PO SCH (08:04)
[2021-05-13] MEDS: DEXAMETHASONE SOD PHOSPHATE 10 MG/ML VIAL IV SCH (09:29)
[2021-05-13] MEDS: METOPROLOL TARTRATE 25 MG TABLET PO SCH ×2 (09:30→16:38)
--- NOTE | 2021-05-13 09:30 | NUR ---
RN NOTES DUE MEDS GIVEN
[2021-05-13] MEDS: LOSARTAN POTASSIUM 50 MG TABLET PO SCH (09:31)
[2021-05-13] MEDS ORDERED: ENOXAPARIN SODIUM 40 MG/0.4 ML DISP.SYRIN SQ SCH (11:30)
[2021-05-13 12:00] VITALS: BP 153/78
[2021-05-13 14:36] LABS: ALBUMIN 3.1 g/dL (3.4-5.0); BILIRUBIN,DIRECT 0.2 mg/dL (0.0-0.2); BILIRUBIN,TOTAL 0.5 mg/dL (0.2-1.0); TOTAL PROTEIN, SERUM 7.2 g/dL (6.4-8.2)
--- NOTE | 2021-05-13 18:38 | NUR ---
TELE NURSE CLOSING NOTE. PATIENT REMAIN STABLE THROUGHOUT THE SHIFT. PATIENT IS ON ROOM AIR. PATIENT SHOWS NO SIGN OF DISTRESS. NO DISCOMFORT. BED LOWEST POSITION WITH HOB UP 30 DEGREE. SAFETY MEASURE PROVIDED. ISOLATION MEASURE. PROVIDE COMFORT MEASURE. PATIENT AMBULATE. WILL CONTINUE TO MONITOR AND ENDORSE TO ON COMING NURSE.
--- NOTE | 2021-05-13 19:00 | NUR ---
RN NOTE RECEIVED PATIENT IN BED RESTING ALERT ORIENTED X4 VERBALLY RESPONSIVE ON ROOM AIR O2:94% IV SITE IS ON RIGHT AC INTACT PATENT AMBULATORY CONTINET TO BOWEL/BLADDER SAFETY MEASURE IMPLEMENT,BED IN LOW POSITION AND LOCKED,CALL LIGHT WITHIN REACH CONTINUE TO MONITOR.
--- NOTE | 2021-05-13 19:45 | NUR ---
RN NOTE PCR TEST DONE SENT TO LAB
[2021-05-13 20:00] VITALS: BP 147/64
[2021-05-13] MEDS: MORPHINE SULFATE INJ 2 MG/ML DISP.SYRIN IV PRN (20:54)
[2021-05-14] MEDS: MORPHINE SULFATE INJ 2 MG/ML DISP.SYRIN IV PRN ×2 (03:26→11:26)
[2021-05-14 04:00] VITALS: BP 143/79
--- NOTE | 2021-05-14 06:22 | NUR ---
RN NOTE PATIENT REMAINS ON ALERT ORIENTED X4 VERBALLY RESPONSIVE NO SOB NOT ACUTE DISTRESS NOTED ON ROOM AIR O2:96% IV SITE IS ON RIGHT AC INTACT PATENT,AMBULATORY CONTINET TO BOWEL/BLADDER ALL DUE MEDS GIVEN MD ORDERED KEPT CLEAN AND DRY ALL THE TIME,KEPT COMFORTABLE ALL NEEDS MET ENDORSE NEXT COMING SHIFT FOR CONTINUATION OF CARE.
[2021-05-14 07:13] LABS: BASOPHILS % (AUTO) 0.1 % (0.0-2.0); HEMATOCRIT 36 % (33-45); HEMOGLOBIN 12.7 g/dL (11.5-14.8); LYMPHOCYTES % (AUTO) 19.9 % (20.0-44.0); MEAN CORPUSCULAR HGB CONC 35 g/dl (31.0-36.0); MEAN CORPUSCULAR VOLUME 90 fL (82-100); MONOCYTES # (AUTO) 0.5 K/uL (0.1-1.30); MONOCYTES % (AUTO) 10.3 % (2.0-12.0); NEUTROPHILS # (AUTO) 3.6 K/uL (1.8-8.9); NEUTROPHILS % (AUTO) 69.7 % (43.0-81.0); PLATELET COUNT (AUTO) 140 K/uL (150-450); RED BLOOD CELL COUNT(AUTO) 4.03 MIL/uL (4.0-5.2); WHITE BLOOD COUNT (AUTO) 5.1 K/uL (4.3-11.0)
[2021-05-14 07:29] LABS: CALCIUM, SERUM 8.4 mg/dL (8.5-10.1); CREATININE 0.8 mg/dL (0.6-1.3); MAGNESIUM 2.1 mg/dL (1.8-2.4); PHOSPHORUS 3.8 mg/dL (2.5-4.9)
--- NOTE | 2021-05-14 07:30 | NUR ---
RN NOTES RECEIVED PATIENT ON BED, AWAKE, ALERT, AND VERBALLY RESPONSIVE. Breathing even and unlabored. no complaints of SOB. HOB elevated. Currently on room air with O2 saturation of 100%. Skin is warm and dry to touch. Patient noted with right arm IV access. Patent. No complaints of constipation noted. Call light placed within reach.
[2021-05-14] MEDS: LEVOTHYROXINE SODIUM 75 MCG TABLET PO SCH (08:21)
[2021-05-14] MEDS: PANTOPRAZOLE 40 MG TABLET.DR PO SCH (08:21)
[2021-05-14] MEDS: LOSARTAN POTASSIUM 50 MG TABLET PO SCH (08:23)
[2021-05-14] MEDS: METOPROLOL TARTRATE 25 MG TABLET PO SCH ×2 (08:23→18:40)
[2021-05-14] MEDS: APIXABAN 5 MG TABLET PO SCH ×2 (08:25→18:40)
[2021-05-14] MEDS: DEXAMETHASONE SOD PHOSPHATE 10 MG/ML VIAL IV SCH (09:00)
--- NOTE | 2021-05-14 09:42 | NUR ---
RN NOTES VARIED WITH DR. CLAUDIA PERRY REGARDING HOLDING DECARDRON. VERIFIED AND ORDER TO HOLD CARRIED OUT. INFORMED PATIENT.
[2021-05-14 10:15] LABS: ABG BASE EXCESS -1.1 mmol/L; ABG OXYGEN SATURATION 93.3 % (92.0-98.5); ABG PCO2 25.2 mmHg (35.0-45.0); ABG PH 7.523 (7.350-7.450); ABG PO2 59.9 mmHg (75.0-100.0); AaDO2 59.7 mmHg; COHb 0.4 % (0.5-1.5); MetHb 0.3 % (0.0-1.5); O2Hb 92.6 % (94.0-97.0); SITE, ABG Right Radial; VENT MODE, BG ROOM AIR
--- NOTE | 2021-05-14 11:30 | NUR ---
RN NOTE PATIENT ABG RESULT pO2 OF 59.9, DR. WALLS ORDER TO START PATEINT ON O2 @ LPM VIA NASAL CANNULA.
[2021-05-14 12:00] VITALS: BP 138/66
[2021-05-14] MEDS ORDERED: DEXA10VI2 IV (12:22)
[2021-05-14] MEDS ORDERED: PANT40TA2 PO (12:22)
[2021-05-14] MEDS ORDERED: LOSA50TA3 PO (12:22)
[2021-05-14] MEDS ORDERED: MELO-107 PO (12:22)
--- NOTE | 2021-05-14 14:19 | NUR ---
RN NOTE PER BENJI PERRY OK TO DISCHARGE TO HOME WITH O2.
--- NOTE | 2021-05-14 18:54 | NUR ---
RN NOTES NO SIGNIFICANT CHANGES DURING SHIFT. PATIENT ON BED, AWAKE, ALERT, AND VERBALLY RESPONSIVE. Breathing even and unlabored. no complaints of SOB. HOB elevated. Currently on oxygen via nasal cannula on 2L/min with O2 saturation of 99%. Skin is warm and dry to touch. No signs of bleeding noted. Patient noted with right arm IV access. Patent. No complaints of constipation noted. Call light placed within reach. Will endorse to next shift for continuity of care.
[2021-05-14] MEDS: ONDANSETRON HCL/PF 4 MG/2 ML VIAL IV PRN (19:52)
[2021-05-14 20:00] VITALS: BP 139/71
[2021-05-15 04:00] VITALS: BP 143/63
--- NOTE | 2021-05-15 06:44 | NUR ---
RN NOTES, NO SIGNIFICANT CHANGE IN CONDITION DURING THE NIGHT, WITH EPISODE OF NAUSEAS LAST NIGHT, DC HOME WITH O2 TODAY, O2 CONCENTRATOR AND 2 TANKS IN THE PATIENT'S ROOM, ON 2LPM WITH OPTIMAL O2 LEVEL, NO SOB/ACUTE DISTRESS, WILL ENDORSE CONTINUITY OF CARE TO ONCOMING NURSE.
[2021-05-15 07:16] LABS: BASOPHILS % (AUTO) 0.1 % (0.0-2.0); HEMATOCRIT 38 % (33-45); HEMOGLOBIN 13.3 g/dL (11.5-14.8); LYMPHOCYTES % (AUTO) 23.2 % (20.0-44.0); MEAN CORPUSCULAR HGB CONC 35 g/dl (31.0-36.0); MEAN CORPUSCULAR VOLUME 91 fL (82-100); MONOCYTES # (AUTO) 0.5 K/uL (0.1-1.30); MONOCYTES % (AUTO) 12.4 % (2.0-12.0); NEUTROPHILS # (AUTO) 2.8 K/uL (1.8-8.9); NEUTROPHILS % (AUTO) 64.3 % (43.0-81.0); PLATELET COUNT (AUTO) 122 K/uL (150-450); RED BLOOD CELL COUNT(AUTO) 4.16 MIL/uL (4.0-5.2); WHITE BLOOD COUNT (AUTO) 4.4 K/uL (4.3-11.0)
--- NOTE | 2021-05-15 07:25 | NUR ---
RN NOTE PATIENT OBSERVED ON BED ALERT AND ORIENTED X4, ABLE TO VERBALIZE NEEDS, ON O2 VIA NC @ 2LPM O2 SAT OF 92% TOLERATING WELL, BREATHING EVEN AND UNLABORED, PATIENT FOR DISCHARGE, O2 DELIVERED AND AT BEDSIDE, WILL CONTINUE TO MONITOR, CALL LIGHT WITHIN REACH, SAFETY MEASURES OBSERVED, BED WHEELS LOCK.
[2021-05-15 07:37] LABS: CALCIUM, SERUM 8.6 mg/dL (8.5-10.1); CREATININE 0.9 mg/dL (0.6-1.3); MAGNESIUM 2.3 mg/dL (1.8-2.4); PHOSPHORUS 4.5 mg/dL (2.5-4.9); POTASSIUM 3.8 mmol/L (3.5-5.1)
--- NOTE | 2021-05-15 08:00 | NUR ---
RN NOTE PATIENT FOR DISCHARGE THIS AM, DR. PERRY NOTIFIED REGARDING PATIENT U/A MD AWARE OK TO DISCHARGE THIS AM.
[2021-05-15] MEDS: METOPROLOL TARTRATE 25 MG TABLET PO SCH (08:46)
[2021-05-15] MEDS: LEVOTHYROXINE SODIUM 75 MCG TABLET PO SCH (08:47)
[2021-05-15] MEDS: LOSARTAN POTASSIUM 50 MG TABLET PO SCH (08:47)
[2021-05-15] MEDS: APIXABAN 5 MG TABLET PO SCH (08:50)
[2021-05-15] MEDS: PANTOPRAZOLE 40 MG TABLET.DR PO SCH (08:50)
[2021-05-15] MEDS: DEXAMETHASONE SOD PHOSPHATE 10 MG/ML VIAL IV SCH (09:18)
[2021-05-15 09:21] LABS: ALBUMIN 2.6 g/dL (3.4-5.0); BILIRUBIN,DIRECT 0.3 mg/dL (0.0-0.2); BILIRUBIN,TOTAL 0.6 mg/dL (0.2-1.0); TOTAL PROTEIN, SERUM 6.7 g/dL (6.4-8.2)
[2021-05-15 12:00] VITALS: BP 99/56
--- NOTE | 2021-05-15 14:30 | NUR ---
RN NOTE COVID PCR POSITIVE MD MADE AWARE.
--- NOTE | 2021-05-15 15:26 | NUR ---
RN NOTE PATIENT DISCHARGE TO HOME, WITH O2 VIA NC @2LPM O2 SAT OF 97%DISCHARGE INSTRUCTION GIVEN, COVID 29 HOME QUARANTINE INFORMATION GIVEN, MEDICATION LIST GIVEN, PATIENT UNIT LEADER BY DAUGHTER BRENDA.
== END 2021-05-15 15:22 | disposition home health service (06) | DRG 178 ==
LOC: ER 08:20 → TELE1 14:32 → EDBD 14:32 → MEDSG1 05-12 19:57
PROVIDERS: ADMIT Nurse Practitioner Acute Care; ATTEND Nurse Practitioner Acute Care
DX: U07.1 COVID-19 (principal); D68.59 Other primary thrombophilia; I50.32 Chronic diastolic (congestive) heart failure; I25.10 Atherosclerotic heart disease of native coronary artery without angina pectoris; I11.0 Hypertensive heart disease with heart failure; I48.91 Unspecified atrial fibrillation; M19.90 Unspecified osteoarthritis, unspecified site; Z79.01 Long term (current) use of anticoagulants; D69.6 Thrombocytopenia, unspecified; E78.5 Hyperlipidemia, unspecified; G89.29 Other chronic pain; M54.30 Sciatica, unspecified side; Z79.899 Other long term (current) drug therapy; Z90.710 Acquired absence of both cervix and uterus; E78.00 Pure hypercholesterolemia, unspecified; F41.9 Anxiety disorder, unspecified; Z88.0 Allergy status to penicillin; I09.9 Rheumatic heart disease, unspecified; R09.02 Hypoxemia; K44.9 Diaphragmatic hernia without obstruction or gangrene; K57.90 Diverticulosis of intestine, part unspecified, without perforation or abscess without bleeding; K82.8 Other specified diseases of gallbladder; R79.89 Other specified abnormal findings of blood chemistry
CPT/HCPCS: 36415; 36600; 71045-TC; 76700-TC; 80048-TC; 80053-TC; 80061-TC; 80074; 80076-TC; 81001; 82803-TC; 83540-TC; 83605-TC; 83735-TC; 83880; 84100-TC; 84443-TC; 84484-TC; 85025-TC; 85730-TC; 87040-TC; 87081-TC; 87086-TC; 87186-TC; 93307-TC; C9803; G0378; J1100; J2270; J2405; J7030; U0003

== ENCOUNTER 2022-08-23 18:26 | Emergency (ER) | payer MEDICARE ==
[~2022-08-23] VITALS: Ht 165.1 cm; Wt 65.8 kg
[~2022-08-23 18:26] MED LIST changes: +AMIO100T4 PO; -AMIO200T5 PO; +DEXA10VI2 IV; -LISI-768 PO; +LOSA50TA3 PO; +MAGN100T3 PO; +MELO-107 PO; +METO25TA6 PO; +PANT40TA2 PO; -PANT40TA49 PO
--- NOTE | 2022-08-23 19:41 | NUR ---
BLOOD WORK COLLECTED
[2022-08-23 20:07] LABS: CALCIUM, SERUM 8.9 mg/dL (8.5-10.1); CARBON DIOXIDE 27 mmol/L (21-32); CHLORIDE 107 mmol/L (98-107); CREATININE 1.3 mg/dL (0.6-1.3); GLUCOSE 119 mg/dL (74-106); SODIUM SERUM 141 mmol/L (136-145); UREA NITROGEN, BLOOD 32 mg/dL (7-18)
[2022-08-23 20:08] LABS: BASOPHILS % (AUTO) 0.5 % (0.0-2.0); EOSINOPHILS % (AUTO) 1.7 % (0.0-6.0); HEMATOCRIT 35 % (33-45); HEMOGLOBIN 11.8 g/dL (11.5-14.8); LYMPHOCYTES # (AUTO) 1.9 K/uL (0.8-4.8); LYMPHOCYTES % (AUTO) 26.3 % (20.0-44.0); MEAN CORPUSCULAR HGB CONC 34 g/dl (31.0-36.0); MEAN CORPUSCULAR VOLUME 90 fL (82-100); MONOCYTES # (AUTO) 0.7 K/uL (0.1-1.30); MONOCYTES % (AUTO) 9.4 % (2.0-12.0); NEUTROPHILS # (AUTO) 4.5 K/uL (1.8-8.9); NEUTROPHILS % (AUTO) 62.1 % (43.0-81.0); PLATELET COUNT (AUTO) 162 K/uL (150-450); RED BLOOD CELL COUNT(AUTO) 3.88 MIL/uL (4.0-5.2); WHITE BLOOD COUNT (AUTO) 7.2 K/uL (4.3-11.0)
--- NOTE | 2022-08-23 21:26 | NUR ---
GOLF CLUB MANAGER AT PT'S BEDSIDE
--- NOTE | 2022-08-23 22:26 | NUR ---
IV removed. Catheter intact and site benign. Pressure and 4x4 applied to site. No bleeding noted.
--- NOTE | 2022-08-23 22:26 | NUR ---
Patient discharged to home in stable condition. Written and verbal after care instructions given. Patient verbalizes understanding of instruction.
[2022-08-24 00:05] VITALS: BP 182/60
== END 2022-08-23 21:50 | disposition home or self-care (01) ==
LOC: ER 18:31
DX: R00.2 Palpitations (principal); I10 Essential (primary) hypertension; E78.00 Pure hypercholesterolemia, unspecified; M19.90 Unspecified osteoarthritis, unspecified site; E07.9 Disorder of thyroid, unspecified; I48.91 Unspecified atrial fibrillation; Z88.0 Allergy status to penicillin; Z98.890 Other specified postprocedural states; Z79.899 Other long term (current) drug therapy; Z79.01 Long term (current) use of anticoagulants
CPT/HCPCS: 36415; 71045-TC; 80048-TC; 83880; 84484-TC; 85025-TC

== ENCOUNTER 2022-12-02 12:57 | Emergency (ER) | payer MEDICARE ==
[~2022-12-02] VITALS: Ht 162.6 cm; Wt 73.0 kg
[2022-12-02] MEDS ORDERED: HYDROCODONE/APAP 5/325MG TABLET PO ONE (14:30)
[2022-12-02] MEDS ORDERED: LIDOCAINE 1% INJ 50 ML MDV IJ ONE (14:30)
[2022-12-02] MEDS ORDERED: HYDROCODONE/APAP 5/325MG TABLET ONE (15:14)
[2022-12-02] MEDS ORDERED: LIDOCAINE HCL/MPF 1% 30 ML VIAL IJ ONE (15:16)
--- NOTE | 2022-12-02 15:30 | NUR ---
BIBS FOR MECHANICAL FALL. A/O X 3, ABLE TO MAKE NEEDS KNOWN, TOLERATING WELL ON ROOM AIR.
--- NOTE | 2022-12-02 16:00 | NUR ---
AT BEDSIDE FOR SUTURE PROCEDURE
--- NOTE | 2022-12-02 16:17 | NUR ---
APPLIED LEFT THUMB SPICA VELCRO SPLINT
--- NOTE | 2022-12-02 16:33 | NUR ---
Patient discharged to home in stable condition. Written and verbal after care instructions given. Patient verbalizes understanding of instruction.
[2022-12-02 16:35] VITALS: BP 188/92
== END 2022-12-02 16:35 | disposition home or self-care (01) ==
LOC: ER 13:05
DX: S01.511A Laceration without foreign body of lip, initial encounter (principal); M25.532 Pain in left wrist; I10 Essential (primary) hypertension; E03.9 Hypothyroidism, unspecified; E78.00 Pure hypercholesterolemia, unspecified; M19.90 Unspecified osteoarthritis, unspecified site; Z88.0 Allergy status to penicillin; Z79.899 Other long term (current) drug therapy; W01.0XXA Fall on same level from slipping, tripping and stumbling without subsequent striking against object, initial encounter; Y93.89 Activity, other specified; Y92.89 Other specified places as the place of occurrence of the external cause; Y99.8 Other external cause status
CPT/HCPCS: 99284; 72125; 12011; 29125; 70450; 70486; 73110; J3490

== ENCOUNTER 2023-01-14 09:44 | Emergency (ER) | payer MEDICARE ==
[~2023-01-14] VITALS: Ht 165.1 cm; Wt 63.5 kg
--- NOTE | 2023-01-14 09:50 | NUR ---
BIB RA 878 FROM HOME PT WAS USING THE RESTROON AND HAD A SLIP AND FALL -LOC C/O LOWER BACK PAIN THAT RADIATES TO HER ABDOMEN
--- NOTE | 2023-01-14 09:55 | NUR ---
ESTABLISHED IV LINE 20 G LEFT AC . INFUSING WELL
--- NOTE | 2023-01-14 09:55 | NUR ---
BLOOD SAMPLE OBTAINED SENT TO LAB
[2023-01-14] MEDS ORDERED: ONDANSETRON HCL/PF 4 MG/2 ML VIAL IVP ONE ×2 (10:00→20:00)
[2023-01-14] MEDS ORDERED: MORPHINE SULFATE INJ 2 MG/ML DISP.SYRIN IV ONE ×3 (10:00→20:00)
[2023-01-14] MEDS ORDERED: MORPHINE SULFATE INJ 2 MG/ML DISP.SYRIN ONE (10:22)
[2023-01-14] MEDS ORDERED: ONDANSETRON HCL/PF 4 MG/2 ML VIAL ONE ×2 (10:22→19:48)
[2023-01-14 10:48] LABS: CALCIUM, SERUM 9.1 mg/dL (8.5-10.1); CARBON DIOXIDE 25 mmol/L (21-32); CHLORIDE 106 mmol/L (98-107); CREATININE 1.2 mg/dL (0.6-1.3); GLUCOSE 135 mg/dL (74-106); POTASSIUM 4.5 mmol/L (3.5-5.1); SODIUM SERUM 140 mmol/L (136-145); UREA NITROGEN, BLOOD 31 mg/dL (7-18)
[2023-01-14 10:54] LABS: ALANINE AMINOTRANSFERASE 31 U/L (12-78); ALBUMIN 3.5 g/dL (3.4-5.0); ALKALINE PHOSPHATASE 90 U/L (46-116); ASPARTATE AMINOTRANSFERASE 25 U/L (15-37); BILIRUBIN,DIRECT 0.1 mg/dL (0.0-0.2); BILIRUBIN,TOTAL 0.6 mg/dL (0.2-1.0); TOTAL PROTEIN, SERUM 7.1 g/dL (6.4-8.2)
[2023-01-14] MEDS ORDERED: IV NS 0.9% 250 ML IV ONE (11:16)
[2023-01-14] MEDS ORDERED: CT SWABBABLE VALVE TRANS SET 1 EA INFUS.SET MC ONE (11:16)
[2023-01-14] MEDS ORDERED: IOHEXOL-300 100 ML VIAL IV ONE (11:16)
[2023-01-14 11:54] LABS: BASOPHILS % (AUTO) 0.3 % (0.0-2.0); EOSINOPHILS % (AUTO) 0.5 % (0.0-6.0); HEMATOCRIT 38 % (33-45); HEMOGLOBIN 12.5 g/dL (11.5-14.8); LYMPHOCYTES # (AUTO) 1.8 K/uL (0.8-4.8); LYMPHOCYTES % (AUTO) 22.7 % (20.0-44.0); MEAN CORPUSCULAR HGB CONC 33 g/dl (31.0-36.0); MEAN CORPUSCULAR VOLUME 86 fL (82-100); MONOCYTES # (AUTO) 0.6 K/uL (0.1-1.30); MONOCYTES % (AUTO) 7.4 % (2.0-12.0); NEUTROPHILS # (AUTO) 5.4 K/uL (1.8-8.9); NEUTROPHILS % (AUTO) 69.1 % (43.0-81.0); PLATELET COUNT (AUTO) 165 K/uL (150-450); RED BLOOD CELL COUNT(AUTO) 4.35 MIL/uL (4.0-5.2); WHITE BLOOD COUNT (AUTO) 7.8 K/uL (4.3-11.0)
[2023-01-14] MEDS ORDERED: MORPHINE SULFATE INJ 4 MG/ML DISP.SYRIN ONE ×2 (12:26→19:48)
--- NOTE | 2023-01-14 12:31 | NUR ---
COVID SWAB TAKEN
--- NOTE | 2023-01-14 12:34 | NUR ---
DR. FONTAINE SPEAKING WITH DR. CAMARGO.
--- NOTE | 2023-01-14 15:44 | NUR ---
[phone] will be picking up the patient at [phone]
--- NOTE | 2023-01-14 17:09 | NUR ---
PATIENT GOING TO [facility]. TRANSPORT ETA [phone]
--- NOTE | 2023-01-14 17:28 | NUR ---
Mone jaquez in [facility] - 01/14/23 at 1810 by TONY KAILA GUTIERREZ [phone]
--- NOTE | 2023-01-14 18:06 | NUR ---
NEW ETA 1830 - [phone]
--- NOTE | 2023-01-14 18:10 | NUR ---
KAILA GUTIERREZ [phone]
--- NOTE | 2023-01-14 18:13 | NUR ---
TAYE GUTIERREZ [phone] INFORMED OF ETA OF TRANSPORT.
--- NOTE | 2023-01-14 19:45 | NUR ---
REPORT GIVEN TO VIKRAM RUANO AT [facility]
[2023-01-14 20:15] VITALS: BP 103/70
== END 2023-01-14 20:16 ==
LOC: ER 10:10
DX: S22.080A Wedge compression fracture of T11-T12 vertebra, initial encounter for closed fracture (principal); I10 Essential (primary) hypertension; I48.91 Unspecified atrial fibrillation; E78.00 Pure hypercholesterolemia, unspecified; M19.90 Unspecified osteoarthritis, unspecified site; Z88.0 Allergy status to penicillin; Z79.899 Other long term (current) drug therapy; Z20.822 Contact with and (suspected) exposure to COVID-19; W01.0XXA Fall on same level from slipping, tripping and stumbling without subsequent striking against object, initial encounter; Y93.89 Activity, other specified; Y92.89 Other specified places as the place of occurrence of the external cause; Y99.8 Other external cause status
CPT/HCPCS: 99285; 71260; 96374; 96375; 87426; 93005; 72131; 72128; 74177; 85025; 80048; 80076; 36415; 84484; 85730; 87081; 86850; 96376; J2270 ×3; J2405 ×2; J7050; Q9967; C9803

== ENCOUNTER 2023-08-04 20:27 | Inpatient (IN) | payer MEDICARE ==
[~2023-08-04] VITALS: Ht 165.1 cm; Wt 64.9 kg
[2023-08-04] MEDS ORDERED: FAMOTIDINE/PF INJ 20 MG/2 ML VIAL IV ONE ×2 (21:17→21:30)
[2023-08-04] MEDS ORDERED: ONDANSETRON HCL/PF 4 MG/2 ML VIAL ONE (21:17)
[2023-08-04] MEDS ORDERED: IV NS 0.9% 1,000 ML BAG IV ONE (21:30)
[2023-08-04] MEDS ORDERED: ONDANSETRON HCL/PF 4 MG/2 ML VIAL IV ONE (21:30)
[2023-08-04 22:04] LABS: BASOPHILS % (AUTO) 0.2 % (0.0-2.0); EOSINOPHILS % (AUTO) 0.1 % (0.0-6.0); HEMATOCRIT 34 % (33-45); LYMPHOCYTES # (AUTO) 0.6 K/uL (0.8-4.8); LYMPHOCYTES % (AUTO) 3.8 % (20.0-44.0); MEAN CORPUSCULAR HEMOGLOBIN 28 PG (26.0-33.0); MEAN CORPUSCULAR HGB CONC 33 g/dl (31.0-36.0); MEAN CORPUSCULAR VOLUME 85 fL (82-100); MONOCYTES # (AUTO) 0.5 K/uL (0.1-1.30); MONOCYTES % (AUTO) 3.4 % (2.0-12.0); NEUTROPHILS # (AUTO) 14.8 K/uL (1.8-8.9); NEUTROPHILS % (AUTO) 92.5 % (43.0-81.0); PLATELET COUNT (AUTO) 181 K/uL (150-450); RED BLOOD CELL COUNT(AUTO) 3.97 MIL/uL (4.0-5.2); RED CELL DISTRIBUTION WIDTH 13.9 % (11.5-15.0)
[2023-08-04 22:11] LABS: INR 0.97 (0.91-1.10); PARTIAL THROMBOPLASTIN TIME 25.9 SEC (24.3-34.3); PROTHROMBIN TIME 10.3 SECS (9.2-11.1)
[2023-08-04 22:21] LABS: CALCIUM, SERUM 8.8 mg/dL (8.5-10.1); CARBON DIOXIDE 19 mmol/L (21-32); CHLORIDE 104 mmol/L (98-107); CREATININE 1.3 mg/dL (0.6-1.3); GLUCOSE 167 mg/dL (74-106); POTASSIUM 3.2 mmol/L (3.5-5.1); SODIUM SERUM 138 mmol/L (136-145); UREA NITROGEN, BLOOD 29 mg/dL (7-18)
[2023-08-04 22:26] LABS: ALANINE AMINOTRANSFERASE 25 U/L (12-78); ALBUMIN 3.6 g/dL (3.4-5.0); ALKALINE PHOSPHATASE 82 U/L (46-116); ASPARTATE AMINOTRANSFERASE 39 U/L (15-37); BILIRUBIN,DIRECT 0.2 mg/dL (0.0-0.2); BILIRUBIN,TOTAL 0.5 mg/dL (0.2-1.0); TOTAL PROTEIN, SERUM 7.3 g/dL (6.4-8.2)
[2023-08-04] MEDS ORDERED: CIPROFLOXACIN IV RTU 400 MG in PREMIX 1 EA IV SCH (22:30)
[2023-08-04] MEDS ORDERED: FLAGYL/NS RTU 500 MG/100 ML PIGGYBACK IV ONE (22:30)
[2023-08-04 22:39] LABS: LACTIC ACID 2.8 mmol/L (0.4-2.0)
[2023-08-04] MEDS ORDERED: ACETAMINOPHEN 325 MG TABLET ONE (22:55)
[2023-08-04] MEDS ORDERED: CIPROFLOXACIN IV RTU 200 ML IV ONE (22:56)
[2023-08-04] MEDS ORDERED: ACETAMINOPHEN 325 MG TABLET PO ONE (23:00)
[2023-08-04] MEDS ORDERED: IV NS 0.9% 500 ML IV ONE (23:00)
[2023-08-04 23:16] LABS: ANISOCYTOSIS 1+; BASOPHILS % (MANUAL) 0 % (0.0-2.0); PLATELET ESTIMATE ADEQUATE
[2023-08-04 23:19] LABS: EOSINOPHILS % (MANUAL) 0 % (0-4); LYMPHOCYTES % (MANUAL) 5 % (16-48); MONOCYTES % (MANUAL) 4 % (0-11.0); NEUTROPHILS % (MANUAL) 91 (42-76)
[2023-08-04] MEDS ORDERED: METRONIDAZOLE 500MG/ NS 100ML 100 ML IV ONE (23:28)
[2023-08-04 23:48] LABS: APPEARANCE,URINE SLIGHTLY CLOUDY (CLEAR); BILIRUBIN,URINE NEGATIVE (NEGATIVE); BLOOD, URINE NEGATIVE Ery/uL (NEGATIVE); COLOR,URINE YELLOW (YELLOW); KETONES,URINE 1+ mg/dL (NEGATIVE); LEUKOCYTE ESTERASE ,URINE 1+ (NEGATIVE); NITRITE, URINE POSITIVE (NEGATIVE); PH,URINE 5.5 (5.0-8.0); PROTEIN,URINE NEGATIVE (NEGATIVE); UGLUCOSE NEGATIVE (NEGATIVE); UROBILINOGEN,URINE 0.2 EU/dL (0.2)
[2023-08-04 23:50] LABS: ADD URINE CULTURE YES; BACTERIA,URINE Many /HPF (None Seen); RBC,URINE 0-2 /HPF (0-2); SQUAMOUS EPITHELIAL CELL,UR Few /HPF (None Seen)
[2023-08-05] VITALS (7 sets, daily range): BP systolic 92–120; BP diastolic 40–56; TEMP 97–99.1; O2SAT 91–96
[2023-08-05] MEDS ORDERED: MAG HYDROX/AL HYDROX/SIMETH 30 ML UDC PO PRN (01:00)
[2023-08-05] MEDS ORDERED: Z GUARD REMEDY 4 OZ OINT TP PRN (01:00)
[2023-08-05] MEDS ORDERED: ONDANSETRON HCL/PF 4 MG/2 ML VIAL IVP PRN (01:00)
[2023-08-05] MEDS ORDERED: MAGNESIUM HYDROXIDE 30 ML UDC PO PRN (01:00)
[2023-08-05] MEDS ORDERED: ZOLPIDEM TARTRATE 5 MG TABLET PO PRN (01:00)
[2023-08-05] MEDS: ACETAMINOPHEN 325 MG TABLET PO PRN (03:13)
[2023-08-05] MEDS ORDERED: CEFEPIME 1 GM VIAL ONE (04:44)
[2023-08-05] MEDS ORDERED: CEFEPIME 1 GM in IV D5W 100 ML IV SCH (05:00)
[2023-08-05 06:11] LABS: BASOPHILS % (AUTO) 0.1 % (0.0-2.0); HEMATOCRIT 27 % (33-45); HEMOGLOBIN 9.2 g/dL (11.5-14.8); LYMPHOCYTES % (AUTO) 6.1 % (20.0-44.0); MEAN CORPUSCULAR HEMOGLOBIN 29 PG (26.0-33.0); MEAN CORPUSCULAR HGB CONC 34 g/dl (31.0-36.0); MEAN CORPUSCULAR VOLUME 85 fL (82-100); MONOCYTES # (AUTO) 0.8 K/uL (0.1-1.30); MONOCYTES % (AUTO) 4.8 % (2.0-12.0); NEUTROPHILS # (AUTO) 14.4 K/uL (1.8-8.9); PLATELET COUNT (AUTO) 150 K/uL (150-450); RED BLOOD CELL COUNT(AUTO) 3.22 MIL/uL (4.0-5.2); RED CELL DISTRIBUTION WIDTH 13.6 % (11.5-15.0); WHITE BLOOD COUNT (AUTO) 16.1 K/uL (4.3-11.0)
[2023-08-05 06:15] LABS: CALCIUM, SERUM 7.9 mg/dL (8.5-10.1); CARBON DIOXIDE 22 mmol/L (21-32); CHLORIDE 107 mmol/L (98-107); CREATININE 1.6 mg/dL (0.6-1.3); GLUCOSE 127 mg/dL (74-106); MAGNESIUM 1.9 mg/dL (1.8-2.4); PHOSPHORUS 4.4 mg/dL (2.5-4.9); POTASSIUM 3.9 mmol/L (3.5-5.1); SODIUM SERUM 138 mmol/L (136-145); UREA NITROGEN, BLOOD 29 mg/dL (7-18)
[2023-08-05 06:22] LABS: CHOLESTEROL 81 mg/dL (<200); HDL CHOLESTEROL 51 mg/dL (40-60); LDL 21 mg/dL (0-99); THYROID STIMULATING HORMONE 0.265 uIU/mL (0.358-3.74); TRIGLYCERIDES 74 mg/dL (30-150)
[2023-08-05] MEDS: TRAMADOL HCL 50 MG TABLET PO PRN ×2 (06:38→17:56)
[2023-08-05] MEDS: LEVOTHYROXINE SODIUM 75 MCG TABLET PO SCH (08:16)
[2023-08-05] MEDS: SIMVASTATIN 20 MG TABLET PO SCH (08:16)
[2023-08-05] MEDS: MAGNESIUM OXIDE 400 MG TABLET PO SCH (08:16)
[2023-08-05] MEDS: AMIODARONE HCL 200 MG TABLET PO SCH ×2 (08:20→21:48)
[2023-08-05] MEDS: METOPROLOL TARTRATE 25 MG TABLET PO SCH ×2 (08:24→21:00)
[2023-08-05] MEDS: APIXABAN 5 MG TABLET PO SCH ×2 (08:26→20:11)
[2023-08-05] MEDS ORDERED: PANTOPRAZOLE 40 MG VIAL IV SCH (09:00)
[2023-08-05] MEDS ORDERED: LOSARTAN POTASSIUM 50 MG TABLET PO SCH (09:00)
[2023-08-05] MEDS ORDERED: MELOXICAM 7.5 MG TABLET PO SCH (09:00)
[2023-08-05] MEDS ORDERED: IV NS 0.9% 1,000 ML BAG IV PRN (11:00)
[2023-08-05] MEDS ORDERED: ALBUTEROL FS 2.5 MG/0.5 ML VIAL.NEB NEB PRN (11:00)
[2023-08-05] MEDS ORDERED: IPRATROPIUM NEB FS 0.5 MG/2.5 ML AMPUL.NEB NEB PRN (11:00)
[2023-08-05] MEDS ORDERED: HYDROMORPHONE 1 MG/1 ML DISP.SYRIN IV PRN (11:00)
[2023-08-05] MEDS: HYDROCODONE/APAP 10/325MG TABLET PO PRN ×2 (12:33→21:42)
[2023-08-05] MEDS ORDERED: FUROSEMIDE 20 MG TABLET PO SCH (18:00)
[2023-08-05] MEDS ORDERED: Medication Not On Formulary EA (Potassium Chloride 8 MEQ) PO SCH (18:00)
[2023-08-05] MEDS: POLYETHYLENE GLYCOL 3350 17 GM POWD.PACK PO SCH (22:22)
[2023-08-05] MEDS: IV NS 0.9% 1,000 ML IV PRN (23:04)
[2023-08-06] MEDS: CEFEPIME 1 GM in IV D5W 50 ML IV SCH (04:01)
[2023-08-06] MEDS: HYDROCODONE/APAP 10/325MG TABLET PO PRN ×4 (04:02→23:45)
[2023-08-06] MEDS ORDERED: CEFEPIME 1 GM in IV D5W 100 ML IV SCH (05:00)
[2023-08-06 06:16] LABS: BASOPHILS % (AUTO) 0.1 % (0.0-2.0); EOSINOPHILS % (AUTO) 0.2 % (0.0-6.0); HEMATOCRIT 26 % (33-45); HEMOGLOBIN 8.8 g/dL (11.5-14.8); LYMPHOCYTES # (AUTO) 1.1 K/uL (0.8-4.8); LYMPHOCYTES % (AUTO) 6.2 % (20.0-44.0); MEAN CORPUSCULAR HEMOGLOBIN 28 PG (26.0-33.0); MEAN CORPUSCULAR HGB CONC 33 g/dl (31.0-36.0); MEAN CORPUSCULAR VOLUME 85 fL (82-100); MONOCYTES % (AUTO) 5.4 % (2.0-12.0); NEUTROPHILS # (AUTO) 16.2 K/uL (1.8-8.9); NEUTROPHILS % (AUTO) 88.1 % (43.0-81.0); PLATELET COUNT (AUTO) 138 K/uL (150-450); RED BLOOD CELL COUNT(AUTO) 3.11 MIL/uL (4.0-5.2); RED CELL DISTRIBUTION WIDTH 14.2 % (11.5-15.0); WHITE BLOOD COUNT (AUTO) 18.3 K/uL (4.3-11.0)
[2023-08-06 06:26] LABS: ALANINE AMINOTRANSFERASE 15 U/L (12-78); ALBUMIN 2.3 g/dL (3.4-5.0); ALKALINE PHOSPHATASE 73 U/L (46-116); ASPARTATE AMINOTRANSFERASE 17 U/L (15-37); BILIRUBIN,TOTAL 0.5 mg/dL (0.2-1.0); CARBON DIOXIDE 22 mmol/L (21-32); CHLORIDE 107 mmol/L (98-107); CREATININE 1.5 mg/dL (0.6-1.3); GLUCOSE 112 mg/dL (74-106); MAGNESIUM 2.1 mg/dL (1.8-2.4); POTASSIUM 4.1 mmol/L (3.5-5.1); SODIUM SERUM 138 mmol/L (136-145); TOTAL PROTEIN, SERUM 5.8 g/dL (6.4-8.2); UREA NITROGEN, BLOOD 36 mg/dL (7-18)
[2023-08-06 06:27] LABS: CREATINE KINASE, TOTAL 22 U/L (26-192)
[2023-08-06] MEDS: LEVOTHYROXINE SODIUM 75 MCG TABLET PO SCH (07:53)
[2023-08-06 08:00] VITALS: BP 158/80; TEMP 98.1; O2SAT 98
[2023-08-06] MEDS: MAGNESIUM OXIDE 400 MG TABLET PO SCH (09:47)
[2023-08-06] MEDS: SIMVASTATIN 20 MG TABLET PO SCH (09:47)
[2023-08-06] MEDS: PANTOPRAZOLE 40 MG TABLET.DR PO SCH (09:48)
[2023-08-06] MEDS: METOPROLOL TARTRATE 25 MG TABLET PO SCH ×2 (09:49→21:20)
[2023-08-06] MEDS: AMIODARONE HCL 200 MG TABLET PO SCH ×2 (09:50→21:21)
[2023-08-06] MEDS: APIXABAN 5 MG TABLET PO SCH ×2 (09:53→21:24)
[2023-08-06 12:00] VITALS: BP 117/52; TEMP 98.6; O2SAT 94
[2023-08-06 16:00] VITALS: BP 137/57; TEMP 97.7; O2SAT 94
[2023-08-06 20:00] VITALS: BP 131/53; TEMP 98.6; O2SAT 94
[2023-08-06] MEDS: POLYETHYLENE GLYCOL 3350 17 GM POWD.PACK PO SCH (21:19)
[2023-08-07] VITALS: BP 134/59; TEMP 97.5; O2SAT 100
[2023-08-07] MEDS: IV NS 0.9% 1,000 ML IV PRN ×2 (02:59→18:04)
[2023-08-07 03:08] LABS: PTH, INTACT 91 pg/mL (15-65)
[2023-08-07 04:00] VITALS: BP 123/45; TEMP 97.9; O2SAT 98
[2023-08-07] MEDS: CEFEPIME 1 GM in IV D5W 50 ML IV SCH (05:30)
[2023-08-07] MEDS: HYDROCODONE/APAP 10/325MG TABLET PO PRN ×2 (06:20→17:57)
[2023-08-07 07:30] VITALS: BP 124/44; TEMP 98.7; O2SAT 90
[2023-08-07] MEDS: LEVOTHYROXINE SODIUM 75 MCG TABLET PO SCH (07:54)
[2023-08-07] MEDS: SIMVASTATIN 20 MG TABLET PO SCH (08:31)
[2023-08-07] MEDS: MAGNESIUM OXIDE 400 MG TABLET PO SCH (08:32)
[2023-08-07] MEDS: APIXABAN 5 MG TABLET PO SCH ×2 (08:32→21:04)
[2023-08-07] MEDS: METOPROLOL TARTRATE 25 MG TABLET PO SCH ×2 (08:32→21:02)
[2023-08-07] MEDS: PANTOPRAZOLE 40 MG TABLET.DR PO SCH (08:32)
[2023-08-07] MEDS: AMIODARONE HCL 200 MG TABLET PO SCH ×2 (08:34→21:04)
[2023-08-07 09:34] LABS: BASOPHILS % (AUTO) 0.2 % (0.0-2.0); EOSINOPHILS # (AUTO) 0.2 K/uL (0.0-0.7); EOSINOPHILS % (AUTO) 1.4 % (0.0-6.0); HEMATOCRIT 27 % (33-45); HEMOGLOBIN 8.7 g/dL (11.5-14.8); LYMPHOCYTES # (AUTO) 0.9 K/uL (0.8-4.8); LYMPHOCYTES % (AUTO) 7.5 % (20.0-44.0); MEAN CORPUSCULAR HEMOGLOBIN 28 PG (26.0-33.0); MEAN CORPUSCULAR HGB CONC 33 g/dl (31.0-36.0); MEAN CORPUSCULAR VOLUME 86 fL (82-100); MONOCYTES # (AUTO) 0.6 K/uL (0.1-1.30); MONOCYTES % (AUTO) 5.1 % (2.0-12.0); NEUTROPHILS # (AUTO) 9.8 K/uL (1.8-8.9); NEUTROPHILS % (AUTO) 85.8 % (43.0-81.0); PLATELET COUNT (AUTO) 160 K/uL (150-450); RED CELL DISTRIBUTION WIDTH 14.4 % (11.5-15.0); WHITE BLOOD COUNT (AUTO) 11.4 K/uL (4.3-11.0)
[2023-08-07 09:44] LABS: CALCIUM, SERUM 8.5 mg/dL (8.5-10.1); CREATININE 1.3 mg/dL (0.6-1.3)
[2023-08-07 09:50] LABS: ALBUMIN 2.2 g/dL (3.4-5.0); BILIRUBIN,TOTAL 0.4 mg/dL (0.2-1.0); TOTAL PROTEIN, SERUM 5.9 g/dL (6.4-8.2)
[2023-08-07 12:00] VITALS: BP 147/62; TEMP 97.8; O2SAT 100
[2023-08-07 12:07] LABS: *SPE A/G RATIO 0.9 (0.7-1.7); *SPE ALBUMIN 2.3 g/dL (2.9-4.4); *SPE ALPHA-1-GLOBULIN 0.5 g/dL (0.0-0.4); *SPE ALPHA-2-GLOBULIN 0.8 g/dL (0.4-1.0); *SPE BETA GLOBULIN 0.7 g/dL (0.7-1.3); *SPE GLOBULIN, TOTAL 2.7 g/dL (2.2-3.9); *SPE M-SPIKE Not Observed g/dL (Not Observed); *SPEGAMMA GLOBULIN 0.7 g/dL (0.4-1.8)
[2023-08-07 16:00] VITALS: BP 137/50; TEMP 97.8; O2SAT 100
[2023-08-07] MEDS: GUAIFENESIN LA 600 MG TABLET.SA PO SCH (19:19)
[2023-08-07] MEDS: POLYETHYLENE GLYCOL 3350 17 GM POWD.PACK PO SCH (22:04)
[2023-08-08] VITALS (7 sets, daily range): BP systolic 130–145; BP diastolic 54–77; TEMP 98.1–98.6; O2SAT 96–100
[2023-08-08] MEDS: IV NS 0.9% 1,000 ML IV PRN (02:46)
[2023-08-08] MEDS: CEFEPIME 1 GM in IV D5W 50 ML IV SCH (04:00)
[2023-08-08] MEDS: HYDROCODONE/APAP 10/325MG TABLET PO PRN (07:36)
[2023-08-08] MEDS: LEVOTHYROXINE SODIUM 75 MCG TABLET PO SCH (07:36)
[2023-08-08] MEDS: GUAIFENESIN LA 600 MG TABLET.SA PO SCH ×2 (09:01→16:36)
[2023-08-08] MEDS: METOPROLOL TARTRATE 25 MG TABLET PO SCH (09:02)
[2023-08-08] MEDS: PANTOPRAZOLE 40 MG TABLET.DR PO SCH (09:02)
[2023-08-08] MEDS: MAGNESIUM OXIDE 400 MG TABLET PO SCH (09:02)
[2023-08-08] MEDS: APIXABAN 5 MG TABLET PO SCH (09:07)
[2023-08-08] MEDS: AMIODARONE HCL 200 MG TABLET PO SCH (09:08)
[2023-08-08] MEDS: SIMVASTATIN 20 MG TABLET PO SCH (09:13)
[2023-08-08] MEDS ORDERED: METR500T PO (12:09)
[2023-08-08] MEDS ORDERED: SULF1TAB48 PO (12:09)
[2023-08-08] MEDS ORDERED: DOXY-326 PO (12:09)
[2023-08-08] MEDS ORDERED: GUAI600T53 PO (12:09)
[2023-08-08] MEDS: ACETAMINOPHEN 325 MG TABLET PO PRN (13:00)
== END 2023-08-08 17:15 | disposition home health service (06) | DRG 871 ==
LOC: ER 20:28 → TELE 23:39
PROVIDERS: ADMIT Nurse Practitioner Acute Care; ATTEND Internal Medicine
DX: A41.9 Sepsis, unspecified organism (principal); J15.9 Unspecified bacterial pneumonia; N17.0 Acute kidney failure with tubular necrosis; J69.0 Pneumonitis due to inhalation of food and vomit; N39.0 Urinary tract infection, site not specified; I48.20 Chronic atrial fibrillation, unspecified; I48.91 Unspecified atrial fibrillation; D64.9 Anemia, unspecified; E03.9 Hypothyroidism, unspecified; G89.29 Other chronic pain; Z79.01 Long term (current) use of anticoagulants; Z79.899 Other long term (current) drug therapy; Z88.0 Allergy status to penicillin; Z90.710 Acquired absence of both cervix and uterus; Z20.822 Contact with and (suspected) exposure to COVID-19; E78.5 Hyperlipidemia, unspecified; K57.30 Diverticulosis of large intestine without perforation or abscess without bleeding; B96.1 Klebsiella pneumoniae [K. pneumoniae] as the cause of diseases classified elsewhere; I10 Essential (primary) hypertension
CPT/HCPCS: 36415; 71045-TC; 71250-TC; 80048-TC; 80053-TC; 80061-TC; 80076-TC; 81001; 82550-TC; 83605-TC; 83690-TC; 83735-TC; 83970; 84100-TC; 84155; 84165; 84443-TC; 84484-TC; 85025-TC; 85730-TC; 87040-TC; 87086-TC; 94799-TC; A4216; A4223; C9113; C9803; G0378; J0692; J0744; J2405; J3490; J7030; J7050; J7060